=== PATIENT | male | born 1965 | race Caucasian/White ===

== ENCOUNTER 2018-03-16 11:36 | Outpatient (CLI) | payer OTHER | END 2018-03-16 11:37 | disposition home or self-care (01) | LOC: BICRAD 11:36 | PROVIDERS: ATTEND Internal Medicine | DX: Z02.71 Encounter for disability determination (principal); I51.7 Cardiomegaly; I27.21 Secondary pulmonary arterial hypertension | CPT/HCPCS: 71046 ==

== ENCOUNTER 2018-07-18 19:38 | Emergency (ER) | payer OTHER ==
[2018-07-18] MEDS ORDERED: Albuterol Sulfate 2.5 mg/3 ml Neb ONE (20:09)
[2018-07-18 20:34] LABS: #Eosinphils 0.2 thou/uL (0.0-0.7); #Lymphocytes 0.7 thou/uL (1.20-3.40); #Monocytes 0.5 thou/uL (0.11-0.59); #Neutrophils 3.5 thou/uL (1.40-6.50); %Basophils 0.1 % (0.0-1.0); %Eosinophils 3.9 % (0.0-10.0); %Lymphocytes 14.2 % (21.0-51.0); %Monocytes 10.9 % (0.0-10.0); %Neutrophils 70.9 % (42.0-75.0); Hemoglobin 8.8 g/dL (14.0-18.0); Mean Corpuscular HGB CONC 31.3 g/dL (32.0-36.0); Mean Corpuscular Hemoglobin 28.4 pg (27.0-31.0); Mean Corpuscular Volume 90.6 fL (78.0-98.0); Mean Platelet Volume 7.1 fL (7.4-10.4); Platelet Count 192 thou/uL (130-400); RBC Distribution Width 16.1 % (11.5-14.5); Red Blood Cell (RBC) Count 3.11 mill/uL (4.70-6.10); White Blood Cell (WBC) Count 4.9 thou/uL (4.8-10.8)
--- NOTE | 2018-07-18 20:36 | RAD ---
PORTABLE CHEST 07/18/18 PROVIDED CLINICAL HISTORY: Chest pain. FINDINGS: The cardiac silhouette is prominent which may be at least partially on the basis of portable techniqu e. There are diffuse bilateral reticulonodular densities. There is no pleural fluid or pneumothorax a pparent. IMPRESSION: Diffuse bilateral reticulonodular opacity. Infectious, inflammatory, and neoplastic etiology should b e considered. Followup is recommended. POS: [facility]
[2018-07-18 20:40] LABS: ALT (SGPT) 11 U/L (8-55); AST (SGOT) 15 U/L (5-34); Albumin 3.1 g/dL (3.5-5.0); Alkaline Phosphatase 138 U/L (40-150); Anion Gap 9 mmol/L (10-20); BUN (Urea Nitrogen) 27 mg/dL (8.4-25.7); Bilirubin, Total 0.7 mg/dL (0.2-1.2); Calc. Creatinine Clearance 0 mL/min (70-130); Calcium 8.1 mg/dL (7.8-10.44); Carbon Dioxide 22 mmol/L (22-29); Chloride 104 mmol/L (98-107); Estimated GFR-MDRD 65; Globulin 4.1 g/dL (2.4-3.5); Glucose 347 mg/dL (70-105); Potassium 3.6 mmol/L (3.5-5.1); Protein, Total 7.2 g/dL (6.0-8.3); Sodium 131 mmol/L (136-145)
[2018-07-18] MEDS ORDERED: Ketorolac Tromethamine 30 MG/ML VIAL ONE (21:51)
[2018-07-18] MEDS ORDERED: Ketorolac Tromethamine 60 MG/2 ML VIAL ONE (22:01)
--- NOTE | 2018-07-22 21:26 | EKG ---
Test Reason : Blood Pressure : / mmHG Vent. Rate : 071 BPM Atrial Rate : 071 BPM P-R Int : 154 ms QRS Dur : 098 ms QT Int : 450 ms P-R-T Axes : 066 -26 173 degrees QTc Int : 489 ms Sinus rhythm with Fusion complexes Possible Anterior infarct , age undetermined Abnormal ECG Confirmed by ASHLEY ESQUIVEL ([id number]), manuscript editor JOSÉ ANTONIO HORAN ([id number]) on 07/22/2018 9:25:56 PM Referred By: Confirmed By:ASHLEY ESQUIVEL
--- NOTE | 2018-07-24 05:42 | PQF ---
[facility] POST DISCHARGE CLINICAL DOCUMENTATION IMPROVEMENT CLARIFICATION FORM l Todays Date: 07/21/18 l Patients Name DONNA BOOKER l l Admit Date 07/18/18 l Disch Date 07/18/18 Messaging Architect Name [email or web address] [email or web address] To be completed by Messaging Architect: Present Clinical Indicators - Signs / Symptoms Results and Location in Medical Record [ ] Documentation of: [ ] [ ] Documentation of: [ ] [ ] Documentation of: [ ] [ ] Documentation of: [ ] [ ] Risks [ ] [ ] [ ] Treatment [ ] BRONCHITIS MISSING SPECIFICITY FOR BRONCHITIS WHETHER ACUTE OR CHRONIC PLEASE CLARIFY. [ ] [ ] To be completed by Physician MD Torres Tiffany The documentation in this patients record requires clarification to ensure coding compliance and accuracy. Check the appropriate box and include in your discharge summary. [ ] [ ] [ ] [ ] Please check this box if this does not apply to this patient [ ] Unable to determine [ ] Other diagnosis: Review the following information and exercise your independent professional judgment in responding to the clarification. Based upon the clinical findings, risk factors, and treatment, please clarify if you are treating one of the above probable or suspected diagnoses. Physician Signature: Date Time TIFFD
== END 2018-07-18 22:09 | disposition home or self-care (01) ==
LOC: ERS 19:38
DX: J20.9 Acute bronchitis, unspecified (principal); E11.22 Type 2 diabetes mellitus with diabetic chronic kidney disease; I12.9 Hypertensive chronic kidney disease with stage 1 through stage 4 chronic kidney disease, or unspecified chronic kidney disease; I50.9 Heart failure, unspecified; N18.9 Chronic kidney disease, unspecified; E78.5 Hyperlipidemia, unspecified; Z79.4 Long term (current) use of insulin; Z79.899 Other long term (current) drug therapy; Z79.891 Long term (current) use of opiate analgesic
CPT/HCPCS: 36415; 71045; 80053; 83880; 84484; 85025; 93005; 96372; J1885; J7611

== ENCOUNTER 2018-07-20 02:21 | Inpatient (IN) | payer OTHER ==
[2018-07-20 03:02] LABS: Hemoglobin 8.9 g/dL (14.0-18.0); Mean Corpuscular HGB CONC 32.3 g/dL (32.0-36.0); Mean Corpuscular Hemoglobin 28.9 pg (27.0-31.0); Mean Corpuscular Volume 89.5 fL (78.0-98.0); Mean Platelet Volume 7.8 fL (7.4-10.4); Platelet Count 229 thou/uL (130-400); RBC Distribution Width 16.3 % (11.5-14.5); White Blood Cell (WBC) Count 5.5 thou/uL (4.8-10.8)
[2018-07-20 03:24] LABS: Acanthocytes SLIGHT = 1-5 cells (100X) (None Seen); Band 7 % (5-11); Eosinophils 3 % (0-10); Lymphocytes 13 % (21-51); MDiff Complete? YES; Monocytes 8 % (0-10); Neutrophil 69 % (42-75); Schistocytes SLIGHT = 2-5 cells (100X) (0-1/hpf); Tear Drops SLIGHT = 2-5 cells (100X) (0-1/hpf)
[2018-07-20 03:28] LABS: ALT (SGPT) 11 U/L (8-55); AST (SGOT) 19 U/L (5-34); Albumin 3.1 g/dL (3.5-5.0); Alkaline Phosphatase 137 U/L (40-150); Anion Gap 12 mmol/L (10-20); BUN (Urea Nitrogen) 22 mg/dL (8.4-25.7); Bilirubin, Total 1.2 mg/dL (0.2-1.2); CK (CPK) 237 U/L (30-200); Calc. Creatinine Clearance 0 mL/min (70-130); Calcium 8.2 mg/dL (7.8-10.44); Carbon Dioxide 21 mmol/L (22-29); Chloride 103 mmol/L (98-107); Estimated GFR-MDRD 78; Globulin 4.4 g/dL (2.4-3.5); Glucose 156 mg/dL (70-105); Protein, Total 7.5 g/dL (6.0-8.3); Sodium 132 mmol/L (136-145)
[2018-07-20] MEDS ORDERED: Furosemide 40 MG/4 ML VIAL ONE (03:30)
[2018-07-20] MEDS ORDERED: Morphine 2 MG/ML SYRINGE ONE (03:37)
[2018-07-20] MEDS ORDERED: Acetaminophen 500 MG TAB ONE (06:00)
[2018-07-20 06:47] LABS: Troponin I 0.027 ng/mL (< 0.028)
--- NOTE | 2018-07-20 08:26 | RAD ---
SINGLE VIEW OF THE CHEST: COMPARISON: 07/18/2018. HISTORY: Shortness of breath and chest pain. FINDINGS: A single view of the chest shows an enlarged but stable cardiomediastinal silhouette. Increased inte rstitial lung markings are present. There is no evidence of consolidation, mass, or pleural effusion . IMPRESSION: No evidence of acute cardiopulmonary disease. POS: [facility]
[2018-07-20 09:29] LABS: Troponin I 0.022 ng/mL (< 0.028)
[2018-07-20] MEDS ORDERED: Furosemide 40 MG/4 ML VIAL SLOW IVP SCH (17:30)
[2018-07-20] MEDS ORDERED: Ondansetron PF 4 MG/2 ML Vial IVP PRN (17:40)
[2018-07-20] MEDS ORDERED: Ondansetron ODT 4 MG TAB PO PRN (17:40)
[2018-07-20] MEDS ORDERED: Senokot S 8.6-50 MG TAB PO PRN (17:40)
[2018-07-20] MEDS ORDERED: Dextrose 50% Abboject 50 ML SYRINGE SLOW IVP PRN (17:53)
[2018-07-20] MEDS ORDERED: Dextrose 5% in Water 1,000 ML IV PRN (17:53)
[2018-07-20] MEDS ORDERED: Lisinopril 10 MG TAB PO SCH (18:15)
[2018-07-20] MEDS: HumaLOG 300 UNITS/3 ML VIAL SC PRN (18:26)
[2018-07-20 20:47] LABS: INR-International Normal Ratio 1.3; Prothrombin Time 16.1 SEC (12.0-14.7)
[2018-07-20] MEDS ORDERED: Benzonatate 100 MG CAP PO PRN (21:06)
[2018-07-20] MEDS: cloNIDine 0.2 MG TAB PO SCH (21:08)
[2018-07-20] MEDS: Carvedilol 6.25 MG TAB PO SCH (21:08)
[2018-07-20] MEDS: Famotidine 20 MG TAB PO SCH (21:09)
[2018-07-20] MEDS: Doxazosin 2 MG TAB PO SCH (21:09)
--- NOTE | 2018-07-21 01:26 | HP ---
PRIMARY CARE PHYSICIAN: Pedro Thurston. CHIEF COMPLAINT: Cough and shortness of breath. HISTORY OF PRESENT ILLNESS: This is a 53-year-old white male who reports a 2 to 3-day history of increasing shortness of breath, orthopnea along with minimally productive cough. He also has had runny nose, congestion, and sore throat and has felt cold some, but no fevers. He was seen in the emergency room 2 days ago, at that time, he was noted to have some wheezing, which resolved with DuoNeb. He was discharged with a prescription for azithromycin and inhaler; however, the patient did not fill these [facility] He came back early this morning with persistent shortness of breath. In the emergency room, he was noted to be saturating well on room air, but to be a little bit hypertensive and have edema in his left lower extremity. His right is status post below-knee amputation, and he also had a chest x-ray that showed some diffuse reticulonodular increased interstitial markings. BNP was very elevated, so he was initially put in observation upon the medical floor for CHF. I was called to see him later in the afternoon for admission. PAST MEDICAL HISTORY: 1. Congestive heart failure, unknown type for classification. 2. Chronic kidney disease. 3. Cirrhosis of the liver, likely secondary to congestive heart failure. No history of alcoholism or viral hepatitis. 4. Diabetes mellitus type 2, on insulin. 5. Hyperlipidemia. 6. Hypertension. 7. Anemia. 8. Legally blind, secondary to diabetic retinopathy. 9. Diabetic peripheral neuropathy. 10. Chronic left lower extremity ulceration from chronic edema. PAST SURGICAL HISTORY: Right [id number]-vyv-zjua amputation for osteomyelitis. SOCIAL HISTORY: The patient previously was living in [place] and receiving care in [facility]. He moved to [place] and lived with his brother and however, within the last couple of weeks, he had a falling out with his brother and is now living at the [place]. He does still have his previous medications, which he brought with him today. The patient quit smoking cigarettes 20 years ago. He does chew tobacco about one can a week and no history of heavy alcohol use. Occasionally, he used to drink a beer, but stopped that ever since he got the cirrhosis. FAMILY HISTORY: Father is living, he has diabetes mellitus type 2, and he had stomach cancer, for which he had a resection. Mother is , she was an alcoholic and abused prescription drugs. ALLERGIES: NO KNOWN DRUG ALLERGIES. CURRENT MEDICATIONS: 1. Torsemide 20 mg daily. 2. Atorvastatin 40 mg daily. 3. Carvedilol 12.5 mg twice a day. 4. Clonidine 0.2 mg twice a day. 5. Doxazosin 2 mg twice a day. 6. Paroxetine 10 mg daily. 7. Spironolactone 100 mg daily. 8. Novolin 70/30, 23 units in the morning and 18 units at night. REVIEW OF SYSTEMS: CONSTITUTIONAL: He has felt cold some, but no fevers. EYES: Chronic poor vision from his diabetic retinopathy. ENT: See HPI. CARDIOVASCULAR: He has had some chest pain across the front of his chest ever since developing a worsening cough, the chest pain is difficult to describe, but it is worse with cough and with deep breaths. No palpitations or racing heart. PULMONARY: See HPI. He has significant trouble breathing if he lays down flat. He has to prop himself at least to a 45 degrees angle. GASTROINTESTINAL: No abdominal pain. No nausea or vomiting. He had an episode of diarrhea yesterday and today. GENITOURINARY: No dysuria or hematuria. MUSCULOSKELETAL: He has chronic muscle aches throughout his whole body, but nothing new. SKIN: He has ulcers as above to his left leg and hodgson along with some mild redness on the hodgson, this is chronic and it is about the same for over the last year. NEUROLOGIC: He has numbness in his left lower extremity. No other numbness, tingling, or weakness. PHYSICAL EXAMINATION: VITAL SIGNS: Blood pressure 179/97, pulse 82, respirations 18, O2 saturation 94% on room air, and temperature 97.3. GENERAL: This is a well-developed, well-nourished white male, in no acute distress as long as he sits up straight. HEENT: Pupils are equal, round, and reactive to light. Oropharynx clear without lesions, erythema, or exudate. He has poor dentition and missing most of his teeth. NECK: Supple. No lymphadenopathy. No thyroid nodules or enlargement. He does have some mild JVD. HEART: Regular rate and rhythm. No murmurs, rubs, or gallops. LUNGS: He has some mild dry crackling in the bases, worse on the left side, but otherwise good air movement throughout. No significant increased work of breathing. No wheezing currently. ABDOMEN: Moderately distended, but soft. Mildly tender to palpation around the periumbilical region, but no guarding. No masses or rebound tenderness. He does appear to have a little bit of a fluid wave. EXTREMITIES: The patient has a well-healed right BKA and on his left, he has looks like a little bit of dry ulceration on the tip of his left great toe and then very edematous ankle and leg with some mild erythema along the front of it and then multiple areas of skin breakdown, some of them bleeding a little bit. No evidence of acute infection, however. NEUROLOGIC: The patient has intact strength in all extremities and no facial droop. PSYCHIATRIC: Alert and oriented x3. He has a little bit of depressed affect. LABORATORY DATA: CBC; normal white blood cell count, hemoglobin 8.9, hematocrit 27, platelet count is normal. Complete metabolic panel is notable for sodium of 132, carbon dioxide of 21, glucose of 156, creatine kinase of 237, and albumin of 3.1. His troponin was negative x3. His brain natriuretic peptide is of 1434. IMAGING DATA: I did review the x-ray done in the emergency room along with the radiologist's report, it does show some increased interstitial lung markings, increased reticular nodular markings in bilateral lungs, and some possible enlargement of the heart. No effusions visualized. EKG shows normal sinus rhythm at 88 beats per minute and a prolonged QT. No acute ST-segment elevations. ASSESSMENT: 1. Acute on chronic congestive heart failure, undetermined type. We will give the patient Lasix 40 mg IV now and daily. We will also get an echocardiogram. We will continue the patient's carvedilol and his home spironolactone as well. Dr. Cornell was consulted by the emergency room. I am also going to transfer the patient to telemetry. We will fluid restrict the patient and give him a diabetic, low-sodium, fluid-restricted diet. 2. Chronic kidney disease. The patient currently has normal creatinine. We will watch this closely as we diurese him. 3. Diabetes mellitus type 2. We will resume the patient's home Novolin 70/30, put him on diabetic diet and give him moderate insulin sliding scale with before meals and at bedtime fingerstick blood sugars. 4. Cirrhosis. No evidence of spontaneous bacterial peritonitis at this point, and his albumin is actually not that low. I will check coagulation profile to make certain that he is not coagulopathic from the cirrhosis. 5. Chronic anemia. We will monitor in the hospital and make sure it does not drop any. 6. Gastrointestinal prophylaxis. I will put the patient on Pepcid twice a day. 7. Hypertension, uncontrolled. We will resume the patient's home blood pressure medications and we will actually add lisinopril. Given his congestive heart failure and uncontrolled hypertension, we will need to keep a close eye on his creatinine with introduction of his medicines which is started by 10 mg daily for now. We will give him a dose now and then start tomorrow morning. 8. Deep venous thrombosis prophylaxis. I will put the patient on Lovenox prophylactic dose daily. If his INR does come back elevated, we will need to stop this, however. CODE STATUS: I discussed this with the patient. He states he is a full code. Should he be incapacitated, he states his medical decision maker would be his father, Charbel Kumar. Job ID: [id number]
[2018-07-21 05:55] LABS: Band 10 % (5-11); Eosinophils 3 % (0-10); Hemoglobin 8.4 g/dL (14.0-18.0); Lymphocytes 17 % (21-51); MDiff Complete? YES; Mean Corpuscular HGB CONC 31.3 g/dL (32.0-36.0); Mean Corpuscular Hemoglobin 28.8 pg (27.0-31.0); Mean Corpuscular Volume 91.9 fL (78.0-98.0); Mean Platelet Volume 8.2 fL (7.4-10.4); Monocytes 2 % (0-10); Neutrophil 68 % (42-75); Platelet Count 208 thou/uL (130-400); Platelet Morphology Comment Appears Adequate; Red Blood Cell (RBC) Count 2.93 mill/uL (4.70-6.10); White Blood Cell (WBC) Count 3.6 thou/uL (4.8-10.8)
[2018-07-21 06:12] LABS: Anion Gap 19 mmol/L (10-20); BUN (Urea Nitrogen) 27 mg/dL (8.4-25.7); Calc. Creatinine Clearance 110 mL/min (70-130); Calcium 8.2 mg/dL (7.8-10.44); Carbon Dioxide 13 mmol/L (22-29); Chloride 104 mmol/L (98-107); Estimated GFR-MDRD 69; Glucose 184 mg/dL (70-105); Potassium 5.3 mmol/L (3.5-5.1); Sodium 131 mmol/L (136-145)
[2018-07-21] MEDS ORDERED: Lisinopril 10 MG TAB PO SCH (09:00)
[2018-07-21] MEDS ORDERED: Furosemide 40 MG/4 ML VIAL SLOW IVP SCH (09:00)
[2018-07-21] MEDS: Famotidine 20 MG TAB PO SCH ×2 (09:02→21:35)
[2018-07-21] MEDS: Enoxaparin Sodium 40 MG/0.4 ML SYRINGE SC SCH (09:02)
[2018-07-21] MEDS: PARoxetine 20 MG TAB PO SCH (09:03)
[2018-07-21] MEDS: Spironolactone 100 MG TAB PO SCH (09:03)
[2018-07-21] MEDS: Doxazosin 2 MG TAB PO SCH ×2 (09:03→21:35)
[2018-07-21] MEDS: Atorvastatin Calcium 40 MG TAB PO SCH (09:04)
[2018-07-21] MEDS: cloNIDine 0.2 MG TAB PO SCH ×2 (09:04→21:35)
[2018-07-21] MEDS: Carvedilol 6.25 MG TAB PO SCH (09:09)
[2018-07-21] MEDS: HumuLIN 70/30 (300 UNITS/3 ML VIAL) SC SCH (09:24)
[2018-07-21] MEDS ORDERED: Carvedilol 25 MG TAB PO SCH (11:00)
[2018-07-21] MEDS ORDERED: HumuLIN 70/30 (300 UNITS/3 ML VIAL) SC SCH (17:00)
[2018-07-21] MEDS: guaiFENesin ER 600 MG TAB PO SCH (21:35)
[2018-07-21] MEDS: Carvedilol 25 MG TAB PO SCH (21:36)
[2018-07-21] MEDS: Lisinopril 10 MG TAB PO SCH (21:36)
[2018-07-22 04:20] LABS: Bilirubin Negative (Negative); Blood, Urine Moderate (Negative); Clarity CLEAR (Clear); Glucose, Urine (Dipstick) Negative (Negative); Leukocyte Negative (Negative); Nitrite Negative (Negative); Protein, Urine (Dipstick) 300 mg/dL (Neg-Trace)
[2018-07-22 04:23] LABS: Bacteria/HPF None Seen HPF (None Seen); Hyaline Casts/LPF 7-10 HYALINE CAST LPF (0-3 Hyaline); Pathc Cast-AUWi Flag 1.16 (0-2.49); RBC/HPF 0-3 HPF (0-3); Squamous Epithelial 0-3 HPF (0-3); WBC/HPF 0-3 HPF (0-3)
[2018-07-22 04:24] LABS: Yeast-AUWi Flag 51.6 (0-25.0)
[2018-07-22 04:43] LABS: Renal Epithelial None Seen HPF (0-3); Transitional Epithelial NONE SEEN HPF (0-3)
[2018-07-22 04:44] LABS: Yeast-All Forms None Seen HPF (None Seen)
[2018-07-22 04:45] LABS: Urine Culture Reflex No No
[2018-07-22 05:33] LABS: #Eosinphils 0.1 thou/uL (0.0-0.7); #Lymphocytes 0.7 thou/uL (1.20-3.40); #Monocytes 0.5 thou/uL (0.11-0.59); #Neutrophils 2.3 thou/uL (1.40-6.50); %Basophils 0.2 % (0.0-1.0); %Eosinophils 3.4 % (0.0-10.0); %Lymphocytes 18.6 % (21.0-51.0); %Monocytes 13.4 % (0.0-10.0); %Neutrophils 64.4 % (42.0-75.0); Hemoglobin 8.2 g/dL (14.0-18.0); Mean Corpuscular HGB CONC 31.9 g/dL (32.0-36.0); Mean Corpuscular Hemoglobin 28.3 pg (27.0-31.0); Mean Corpuscular Volume 88.9 fL (78.0-98.0); Mean Platelet Volume 7.3 fL (7.4-10.4); Platelet Count 198 thou/uL (130-400); RBC Distribution Width 15.8 % (11.5-14.5); Red Blood Cell (RBC) Count 2.89 mill/uL (4.70-6.10); White Blood Cell (WBC) Count 3.5 thou/uL (4.8-10.8)
[2018-07-22 05:51] LABS: Lactic Acid 0.6 mmol/L (0.5-2.2)
[2018-07-22 06:01] LABS: Anion Gap 11 mmol/L (10-20); BUN (Urea Nitrogen) 36 mg/dL (8.4-25.7); Calc. Creatinine Clearance 109 mL/min (70-130); Carbon Dioxide 23 mmol/L (22-29); Chloride 102 mmol/L (98-107); Estimated GFR-MDRD 68; Glucose 63 mg/dL (70-105); Potassium 4.1 mmol/L (3.5-5.1); Sodium 132 mmol/L (136-145)
[2018-07-22] MEDS: HumuLIN 70/30 (300 UNITS/3 ML VIAL) SC SCH (08:34)
[2018-07-22] MEDS: Enoxaparin Sodium 40 MG/0.4 ML SYRINGE SC SCH (08:34)
[2018-07-22] MEDS: guaiFENesin ER 600 MG TAB PO SCH ×2 (08:35→21:08)
[2018-07-22] MEDS: Lisinopril 10 MG TAB PO SCH ×2 (08:35→21:08)
[2018-07-22] MEDS: cloNIDine 0.2 MG TAB PO SCH ×2 (08:35→18:01)
[2018-07-22] MEDS: Atorvastatin Calcium 40 MG TAB PO SCH (08:35)
[2018-07-22] MEDS: Spironolactone 100 MG TAB PO SCH (08:35)
[2018-07-22] MEDS: PARoxetine 20 MG TAB PO SCH (08:36)
[2018-07-22] MEDS: Doxazosin 2 MG TAB PO SCH ×2 (08:36→21:08)
[2018-07-22] MEDS: Famotidine 20 MG TAB PO SCH (08:36)
[2018-07-22] MEDS: Carvedilol 25 MG TAB PO SCH ×2 (08:36→21:09)
--- NOTE | 2018-07-22 12:05 | PDOC.PN ---
- Subjective Encounter Start Date: 07/22/18 (f/u heart failure) Encounter Start Time: 12:03 Subjective: Pt c/o chest tightness and difficulty breathing. cough productive -: a little. Denies sore throat/runny or stuffy nose. - Objective Resuscitation Status - Order Detail: 07/20/18 17:40 Resuscitation Status Routine Resuscitation Status: FULL: Full Resuscitation Discussed with: patient Vital Signs & Weight: Vital Signs (12 hours) Temp Pulse Resp BP BP BP Pulse Ox 07/22/18 11:16 57 L 18 175/84 H 98 07/22/18 11:12 58 L 16 94 L 07/22/18 07:41 63 20 93 L 07/22/18 07:27 98.1 F 62 20 127/75 92 L 07/22/18 04:06 59 L 20 92 L 07/22/18 02:58 97.8 F 57 L 20 113/64 94 L Weight Admit Weight 228 lb 9.6 oz Weight 225 lb 4.8 oz I&O: 07/21/18 07/22/18 07/23/18 06:59 06:59 06:59 Intake Total 584 400 Output Total 800 410 Balance -216 -10 Result Diagrams: 07/22/18 04:55 07/22/18 04:55 Additional Labs: Accuchecks 07/22/18 07/21/18 07/21/18 05:24 20:19 16:53 POC Glucose 164 H 129 H 123 H EKG Reviewed by me: Yes (tele - sinus 53-70's) Phys Exam - Physical Examination Constitutional: NAD Respiratory: clear to auscultation bilateral wheezing, ? basilar rales, some rhonchi Cardiovascular: RRR, no significant murmur Gastrointestinal: soft, non-tender, positive bowel sounds bilateral pitting edema, right BKA Neurological: non-focal Psychiatric: normal affect Skin: no rash Dx/Plan (1) Heart failure Code(s): I50.9 - HEART FAILURE, UNSPECIFIED Status: Chronic Qualifiers: Heart failure type: unspecified Heart failure chronicity: acute on chronic Qualified Code(s): I50.9 - Heart failure, unspecified (2) Bronchitis Code(s): J40 - BRONCHITIS, NOT SPECIFIED ACUTE OR CHRONIC Status: Acute (3) Diabetes mellitus Code(s): E11.9 - TYPE 2 DIABETES MELLITUS WITHOUT COMPLICATIONS Status: Acute Qualifiers: Diabetes mellitus type: type 2 Diabetes mellitus assistant terminal manager insulin use: with assistant terminal manager use (4) Hyponatremia Code(s): E87.1 - HYPO-OSMOLALITY AND HYPONATREMIA Status: Acute (5) Chronic kidney disease Code(s): N18.9 - CHRONIC KIDNEY DISEASE, UNSPECIFIED Status: Acute Qualifiers: Chronic kidney disease stage: unspecified stage Qualified Code(s): N18.9 - Chronic kidney disease, unspecified (6) Dyslipidemia Code(s): E78.5 - HYPERLIPIDEMIA, UNSPECIFIED Status: Chronic (7) Anemia Code(s): D64.9 - ANEMIA, UNSPECIFIED Status: Acute Qualifiers: Anemia type: unspecified type Qualified Code(s): D64.9 - Anemia, unspecified (8) Neutropenia Code(s): D70.9 - NEUTROPENIA, UNSPECIFIED Status: Acute Qualifiers: Neutropenia type: unspecified Qualified Code(s): D70.9 - Neutropenia, unspecified - Plan * Chest tightness/wheezing - continue steroids, schedule nebs and add inhaled steroid * heart failure - unknown type. IV lasix d/c yesterday - will resume oral diuretic today with lasix * dm - lowblood sugar today - decrease home insulin dosing by 50% and monitor * continue other home meds as ordered * hyponatremia - stable since admission * anemia - stable since admission, uncertainchronicity, pt receives care in [place]. * renal function normal - monitor * d/c pepcid - may be contributing toneutropenia * * dvt prophy - lovenox * gi prophy - not indicated * code status full * * pt remains at high risk in current condition * will need case management assistance for transition out of hospital - * reviewed plan of care with patient, no questions or further needs at end of eval * * 14:39 - RN noting that pt is anxious. Will order prn low dose ativan
[2018-07-22] MEDS ORDERED: Furosemide 40 MG TAB PO SCH (12:15)
[2018-07-22] MEDS: Lorazepam 0.5 MG TAB PO PRN ×2 (15:21→23:31)
[2018-07-22] MEDS ORDERED: HumuLIN 70/30 (300 UNITS/3 ML VIAL) SC SCH (17:00)
[2018-07-22] MEDS: HumaLOG 300 UNITS/3 ML VIAL SC PRN ×2 (17:30→22:17)
--- NOTE | 2018-07-22 17:43 | PDOC.EVN ---
Event Note - Event Note Event Note: Called by RN for elevated bp's in balbir 180's systolic and pt appears more calm and watching TV. Reviewed meds and requested that pt receive the clonidine scheduled for 21:00 now. The other 2 anti-htn meds - carvedilol and lisinopril will be dosed at 21:00.
[2018-07-22] MEDS: Budesonide 0.5 MG/2 ML NEB INH SCH (19:30)
[2018-07-22] MEDS: hydrALAZINE 20 MG/ML VIAL SLOW IVP PRN (22:33)
--- NOTE | 2018-07-22 23:37 | EKG ---
Test Reason : Blood Pressure : / mmHG Vent. Rate : 088 BPM Atrial Rate : 088 BPM P-R Int : 156 ms QRS Dur : 100 ms QT Int : 414 ms P-R-T Axes : 082 -18 094 degrees QTc Int : 500 ms Normal sinus rhythm Cannot rule out Anterior infarct , age undetermined Prolonged QT Abnormal ECG Artifact Confirmed by TAO DUNCAN DO ([id number]), editor newspaper JOSÉ ANTONIO HORAN ([id number]) on 07/22/2018 11:37:11 PM Referred By: Confirmed By:TAO DUNCAN DO
[2018-07-23] MEDS ORDERED: Temazepam 15 MG CAP PO SCH (01:45)
[2018-07-23] MEDS ORDERED: Budesonide 0.25 MG/2 ML NEB NEB SCH (01:45)
[2018-07-23 05:40] LABS: #Lymphocytes 0.6 thou/uL (1.20-3.40); #Monocytes 0.7 thou/uL (0.11-0.59); #Neutrophils 3.3 thou/uL (1.40-6.50); %Basophils 0.5 % (0.0-1.0); %Eosinophils 0.2 % (0.0-10.0); %Lymphocytes 13.5 % (21.0-51.0); %Monocytes 14.1 % (0.0-10.0); %Neutrophils 71.7 % (42.0-75.0); Hemoglobin 8.6 g/dL (14.0-18.0); Mean Corpuscular HGB CONC 32.9 g/dL (32.0-36.0); Mean Corpuscular Volume 88.2 fL (78.0-98.0); Mean Platelet Volume 7.7 fL (7.4-10.4); Platelet Count 205 thou/uL (130-400); RBC Distribution Width 15.6 % (11.5-14.5); Red Blood Cell (RBC) Count 2.96 mill/uL (4.70-6.10); White Blood Cell (WBC) Count 4.6 thou/uL (4.8-10.8)
[2018-07-23 06:03] LABS: Anion Gap 14 mmol/L (10-20); BUN (Urea Nitrogen) 36 mg/dL (8.4-25.7); Calc. Creatinine Clearance 102 mL/min (70-130); Calcium 8.4 mg/dL (7.8-10.44); Carbon Dioxide 18 mmol/L (22-29); Chloride 100 mmol/L (98-107); Estimated GFR-MDRD 64; Glucose 172 mg/dL (70-105); Potassium 4.4 mmol/L (3.5-5.1); Sodium 128 mmol/L (136-145)
[2018-07-23] MEDS ORDERED: Furosemide 40 MG TAB PO SCH (07:30)
[2018-07-23] MEDS: Budesonide 0.5 MG/2 ML NEB INH SCH ×2 (07:32→19:39)
[2018-07-23] MEDS ORDERED: HumuLIN 70/30 (300 UNITS/3 ML VIAL) SC SCH (08:00)
[2018-07-23] MEDS: Carvedilol 25 MG TAB PO SCH ×2 (08:02→21:52)
[2018-07-23] MEDS: cloNIDine 0.2 MG TAB PO SCH ×2 (08:02→21:51)
[2018-07-23] MEDS: Atorvastatin Calcium 40 MG TAB PO SCH (08:02)
[2018-07-23] MEDS: Lorazepam 0.5 MG TAB PO PRN ×2 (08:02→21:52)
[2018-07-23] MEDS: guaiFENesin ER 600 MG TAB PO SCH ×2 (08:02→21:50)
[2018-07-23] MEDS: Doxazosin 2 MG TAB PO SCH ×2 (08:02→21:50)
[2018-07-23] MEDS: PARoxetine 20 MG TAB PO SCH (08:02)
[2018-07-23] MEDS: Lisinopril 10 MG TAB PO SCH (08:02)
[2018-07-23] MEDS: Spironolactone 100 MG TAB PO SCH (08:02)
[2018-07-23] MEDS: Enoxaparin Sodium 40 MG/0.4 ML SYRINGE SC SCH (08:03)
[2018-07-23] MEDS: HumaLOG 300 UNITS/3 ML VIAL SC PRN (08:04)
[2018-07-23] MEDS ORDERED: Furosemide 40 MG/4 ML VIAL ONE (14:55)
[2018-07-23] MEDS ORDERED: Furosemide 40 MG/4 ML VIAL SLOW IVP SCH ×2 (15:00→22:15)
--- NOTE | 2018-07-23 15:10 | PDOC.PN ---
- Subjective Encounter Start Date: 07/23/18 (f/u shortness of breath) Encounter Start Time: 15:08 Subjective: Pt c/o worsening breathing and requesting to go to [facility] where -: his usual doctors are at. He denies any significant swelling in his legs, -: has not been wearing his stump plastic mixer. - Objective Resuscitation Status - Order Detail: 07/20/18 17:40 Resuscitation Status Routine Resuscitation Status: FULL: Full Resuscitation Discussed with: patient Vital Signs & Weight: Vital Signs (12 hours) Temp Pulse Resp BP BP Pulse Ox 07/23/18 13:50 58 L 26 H 93 L 07/23/18 12:37 97.9 F 58 L 20 166/82 H 100 07/23/18 10:22 61 22 H 94 L 07/23/18 08:02 168/84 H 07/23/18 08:00 95 07/23/18 07:58 98 F 16 168/84 H 95 07/23/18 07:32 67 18 95 07/23/18 07:31 67 18 95 Weight Admit Weight 228 lb 9.6 oz Weight 232 lb 8 oz I&O: 07/22/18 07/23/18 07/24/18 06:59 06:59 06:59 Intake Total 400 1640 Output Total 410 2075 Balance -10 -435 Result Diagrams: 07/23/18 04:28 07/23/18 04:28 Additional Labs: Accuchecks 07/23/18 07/23/18 07/22/18 11:16 05:15 20:44 POC Glucose 95 213 H 289 H 07/22/18 17:01 POC Glucose 292 H EKG Reviewed by me: Yes (tele - sinus 50-60's) Phys Exam - Physical Examination Constitutional: NAD bibasilar rales right> left, fair air movement with wheezing speaking in 4-5 word phrases Cardiovascular: RRR, no significant murmur Gastrointestinal: soft edema around right BKA Neurological: non-focal Psychiatric: normal affect Dx/Plan (1) Heart failure Code(s): I50.9 - HEART FAILURE, UNSPECIFIED Status: Chronic Qualifiers: Heart failure type: systolic Heart failure chronicity: acute on chronic Qualified Code(s): I50.23 - Acute on chronic systolic (congestive) heart failure (2) Bronchitis Code(s): J40 - BRONCHITIS, NOT SPECIFIED ACUTE OR CHRONIC Status: Acute (3) Diabetes mellitus Code(s): E11.9 - TYPE 2 DIABETES MELLITUS WITHOUT COMPLICATIONS Status: Acute Qualifiers: Diabetes mellitus type: type 2 Diabetes mellitus termite treater insulin use: with termite treater use (4) Hyponatremia Code(s): E87.1 - HYPO-OSMOLALITY AND HYPONATREMIA Status: Acute (5) Chronic kidney disease Code(s): N18.9 - CHRONIC KIDNEY DISEASE, UNSPECIFIED Status: Acute Qualifiers: Chronic kidney disease stage: unspecified stage Qualified Code(s): N18.9 - Chronic kidney disease, unspecified (6) Dyslipidemia Code(s): E78.5 - HYPERLIPIDEMIA, UNSPECIFIED Status: Chronic (7) Anemia Code(s): D64.9 - ANEMIA, UNSPECIFIED Status: Acute Qualifiers: Anemia type: unspecified type Qualified Code(s): D64.9 - Anemia, unspecified (8) Neutropenia Code(s): D70.9 - NEUTROPENIA, UNSPECIFIED Status: Acute Qualifiers: Neutropenia type: unspecified Qualified Code(s): D70.9 - Neutropenia, unspecified - Plan * Acute decompensated systolic HF - reviewed Echo and EFestimated at 35-40% * Lasix 40 mg IV now * recheck in 6 hours and consider repeat * Appreciate Cardiology following * Chest tightness/wheezing - continue steroids, schedule nebs and inhaled steroid. Chest tightness is not explained by decompensated heart failure. may be COPD exacerbatioon - although pt denies hx of this - vs bronchitis * dm - insullin lowered yesterday due to low blood sugars - will adjust as some blood sugars now in the 200's * continue other home meds as ordered * hyponatremia - slightly worse, asx, c/w hypervolemic. Will continue fluid restriction of 1.2 L per day and continue lasix/monitoring along with renal function * * anemia - stable since admission, uncertain chronicity, pt receives care in [place]. * renal function normal/stable - monitor * d/c pepcid yesterday - may be contributing to neutropenia which is improved today * * Transfer center contacted regarding patient request to transfer to [facility]. Pt advised that I do not think he is stable for discharge, and that we cannot send him to [place] without their acceptance. If he desires to leave prior to [facility] accepting him in transfer, itwill be against medical advice. * * 15:20 - RN reports pt went downstairs to see a friend, away from room. Is aware of request to not leave floor. * * continue mood medications and prn ativan * * dvt prophy - lovenox * gi prophy - not indicated * code status full * * pt remains at high risk in current condition * reviewed plan of care with patient,no questions or further needs at end of eval. * * discussed with Arleen/Charge Nurse - transfer center will be able to contact a transfer hospital on Tuesday for financial clearance. If cleared, a doc-to-doc discussion will take place. By report, [facility] full.
--- NOTE | 2018-07-23 15:41 | PRG ---
DATE OF SERVICE: 07/21/2018 SUBJECTIVE: Mr. Kumar reports feeling about the same as he felt on admission. He does report some interval improvement in lower extremity edema. Uncomfortable when attempting to lie flat, reports thick secretions that are typical to expectorate. Reports dyspnea on exertion, which is unchanged. One loose stool this morning, which was new. He has concerns about disposition after hospitalization, was told by [facility], he would not be able to return there at discharge. When asked, he reports learning about his congestive heart failure about 3 years ago. Most of his medical care has been in [place]. In fact, he has some appointments coming up in next few weeks to address acquisition of a prosthetic for his right below-the- knee amputation. He denies any nausea or vomiting today, no abdominal pain or pressure. He endorses some abdominal distention during times when he retains fluid, and he feels that this is a bit better than on admission. PHYSICAL EXAMINATION: VITAL SIGNS: Blood pressure 159/79, pulse 58, respiratory rate 18, and temperature 99.0. GENERAL: This is a pleasant gentleman, sitting straight up in bed, speaking in short sentences. HEENT: Eyes are without conjunctival injection or scleral icterus. Oropharynx is without erythema or thrush. NECK: Supple. Full range of motion. HEART: Regular rate and rhythm, without distinct murmur. LUNGS: Notable for diffuse rhonchi throughout all lung padilla auscultated, and decreased breath sounds at the bases. ABDOMEN: Mildly distended and nontender. EXTREMITIES: Notable for left lower leg edema, 1+, with overlying areas of skin wounds, presently dressed. GENITOURINARY: No Montalvo catheter. NEUROLOGY: No focal deficits. He does have chronic left lower extremity polyneuropathy. MUSCULOSKELETAL: Status post right [id number] amputation. LABORATORY/DATA REVIEW: White blood cell count today is 3.6, hemoglobin 8.4, hematocrit 26.9, and platelet count 208, 68% neutrophils, 10% bands. INR 1.3. Chemistry panel: Serum sodium 131, potassium 5.3, chloride 104, bicarbonate is 13, BUN 27, creatinine 1.1, glucose 184, accucheck glucose ranging from 161 to 236 on laboratory work. IMPRESSION: 1. Congestive heart failure, unknown type for classification, with decompensation. 2. Acute bronchitis. 3. Chronic kidney disease, stage 2. 4. History of cirrhosis of the liver. 5. History of type 2 diabetes, insulin dependent. 6. Metabolic acidosis, new. 7. Hyperkalemia, mild. 8. Dyslipidemia. 9. Hypertension. 10. Anemia, likely of chronic disease. 11. Legal blindness secondary to diabetic retinopathy. 12. Diabetic peripheral polyneuropathy. 13. History of previous right vqnnz-lvr-[id number] amputation. 14. Chronic left lower extremity ulceration in the context of chronic edema. PLAN/RECOMMENDATIONS: 1. Cardiology-check serum ketone and urine ketone, noted bicarbonate has decreased from 21 to 13. Diabetes labs are not severely out of control, we will also check lactic acid level as well as morning laboratory values. We will place IV diuretic on hold, pending recheck of labs. His primary issue may be more mediated by pulmonary infection rather than fluid overload alone. 2. Pulmonary-significant wheezing present on exam. We will add trial of steroids. He has a previous history of smoking, no official diagnosis of COPD. Add antibiotic coverage, continue nebulizers, and add guaifenesin for expectorant. 3. Endocrine-continue insulin per current sliding scale, may require dose titration after steroids initiated. 4. Social work consultation-I spoke with onsite case manager, we met with the patient in the room. He is open to options including returning to [place] as he is established with cardiac care and also with outpatient wound care. Regarding timing for discharge, it appears he needs a couple of additional days in the hospital, particularly given the noted metabolic acidosis today, pending echocardiogram, and need for medical stabilization. 5. DVT prophylaxis-Lovenox. 6. Given his age and comorbidities, he is at high risk. Job ID: [id number] [facility]
--- NOTE | 2018-07-23 16:20 | PDOC.EVN ---
Event Note - Event Note Event Note: Pt requesting sleep medication for tonight, has responded well to ambien in the psat. Ordered this for tonight.
[2018-07-23] MEDS: HumuLIN 70/30 (300 UNITS/3 ML VIAL) SC SCH (18:27)
[2018-07-23] MEDS: Lisinopril 20 MG TAB PO SCH (21:50)
--- NOTE | 2018-07-23 22:17 | PDOC.EVN ---
Event Note - Event Note Event Note: Pt received lasix earlier, feels that his breathing is a little better, but still has chest tightness and wheezing. Reviewed Cardiology note and IV lasix bid ordered. Will add an additoinal dose of lasix tonight - pt agreeable to this, order CXR for tomorrow, and retime daily lasix to 9:00 and 16:00. In addition, requested that RN in the morning check creatinine prior to giving AM dose of lasix - if elevated to contact hospitalist to determine benefit/risk of additonal diuresis. Reviewed plan of care with pt and RN, no questions or further needs at end of eval.
[2018-07-23] MEDS: hydrALAZINE 20 MG/ML VIAL SLOW IVP PRN (23:55)
[2018-07-23] MEDS: Zolpidem Tartrate 5 MG TAB PO PRN (23:56)
[2018-07-24 05:47] LABS: #Lymphocytes 0.7 thou/uL (1.20-3.40); #Monocytes 0.8 thou/uL (0.11-0.59); #Neutrophils 4.9 thou/uL (1.40-6.50); %Basophils 0.1 % (0.0-1.0); %Eosinophils 0.2 % (0.0-10.0); %Lymphocytes 10.8 % (21.0-51.0); %Monocytes 11.8 % (0.0-10.0); %Neutrophils 77.2 % (42.0-75.0); Hemoglobin 9.1 g/dL (14.0-18.0); Mean Corpuscular HGB CONC 31.3 g/dL (32.0-36.0); Mean Corpuscular Hemoglobin 28.2 pg (27.0-31.0); Platelet Count 228 thou/uL (130-400); RBC Distribution Width 15.7 % (11.5-14.5); Red Blood Cell (RBC) Count 3.24 mill/uL (4.70-6.10); White Blood Cell (WBC) Count 6.4 thou/uL (4.8-10.8)
[2018-07-24] MEDS ORDERED: Furosemide 40 MG/4 ML VIAL SLOW IVP SCH (06:00)
[2018-07-24 06:02] LABS: Anion Gap 13 mmol/L (10-20); BUN (Urea Nitrogen) 45 mg/dL (8.4-25.7); Calc. Creatinine Clearance 100 mL/min (70-130); Calcium 8.7 mg/dL (7.8-10.44); Carbon Dioxide 22 mmol/L (22-29); Chloride 99 mmol/L (98-107); Estimated GFR-MDRD 62; Glucose 160 mg/dL (70-105); Potassium 4.1 mmol/L (3.5-5.1); Sodium 130 mmol/L (136-145)
[2018-07-24] MEDS: Budesonide 0.5 MG/2 ML NEB INH SCH ×2 (07:30→21:10)
[2018-07-24] MEDS: HumuLIN 70/30 (300 UNITS/3 ML VIAL) SC SCH ×2 (08:45→16:39)
[2018-07-24] MEDS: Atorvastatin Calcium 40 MG TAB PO SCH (08:46)
[2018-07-24] MEDS: predniSONE 20 MG TAB PO SCH (08:46)
[2018-07-24] MEDS: guaiFENesin ER 600 MG TAB PO SCH ×2 (08:47→20:50)
[2018-07-24] MEDS: Doxazosin 2 MG TAB PO SCH ×2 (08:47→20:49)
[2018-07-24] MEDS: Enoxaparin Sodium 40 MG/0.4 ML SYRINGE SC SCH (08:47)
[2018-07-24] MEDS: cloNIDine 0.2 MG TAB PO SCH ×2 (08:47→20:50)
[2018-07-24] MEDS: PARoxetine 20 MG TAB PO SCH (08:49)
[2018-07-24] MEDS: Lisinopril 20 MG TAB PO SCH ×2 (08:50→20:50)
[2018-07-24] MEDS: Spironolactone 100 MG TAB PO SCH (08:50)
--- NOTE | 2018-07-24 09:12 | PDOC.PN ---
- Subjective Encounter Start Date: 07/24/18 Encounter Start Time: 12:00 Subjective: Patient reports some improvement in SOB, though still with significant -: orthopnea. No chest pain. - Objective Resuscitation Status - Order Detail: 07/20/18 17:40 Resuscitation Status Routine Resuscitation Status: FULL: Full Resuscitation Discussed with: holley SHI Reviewed: Yes Vital Signs & Weight: Vital Signs (12 hours) Temp Pulse Resp BP BP Pulse Ox 07/24/18 08:44 97.9 F 69 20 133/67 97 07/24/18 04:40 97.8 F 63 20 165/86 H 96 07/23/18 23:55 204/95 H 07/23/18 23:50 204/102 H 07/23/18 21:51 209/102 H 07/23/18 21:50 209/102 H 209/102 H Weight Admit Weight 228 lb 9.6 oz Weight 225 lb 3.2 oz I&O: 07/23/18 07/24/18 07/25/18 06:59 06:59 06:59 Intake Total 1640 1490 Output Total 2070 3075 Balance -435 -1585 Result Diagrams: 07/24/18 04:28 07/24/18 04:28 Additional Labs: Accuchecks 07/24/18 07/23/18 07/23/18 05:45 20:39 17:11 POC Glucose 229 H 198 H 283 H 07/23/18 11:16 POC Glucose 95 Phys Exam - Physical Examination Constitutional: NAD HEENT: moist MMs Respiratory: no wheezing, no rhonchi occ rales in bases Cardiovascular: RRR Gastrointestinal: soft, positive bowel sounds Musculoskeletal: edema present Neurological: non-focal, moves all 4 limbs Psychiatric: normal affect, A&O x 3 Dx/Plan (1) Heart failure Code(s): I50.9 - HEART FAILURE, UNSPECIFIED Status: Chronic Qualifiers: Heart failure type: systolic Heart failure chronicity: acute on chronic Qualified Code(s): I50.23 - Acute on chronic systolic (congestive) heart failure Comment: Diuresed well overnight. BP improved this morning. Continue IV diuresis. Per patient request attempting to transfer to [facility] but unable to due to finances. (2) Acute bronchitis Code(s): J20.9 - ACUTE BRONCHITIS, UNSPECIFIED Status: Acute Comment: Steroids, nebs. No hx of COPD per patient. (3) Anemia Code(s): D64.9 - ANEMIA, UNSPECIFIED Status: Acute Qualifiers: Anemia type: unspecified type Qualified Code(s): D64.9 - Anemia, unspecified Comment: Stable (4) Chronic kidney disease Code(s): N18.9 - CHRONIC KIDNEY DISEASE, UNSPECIFIED Status: Chronic Qualifiers: Chronic kidney disease stage: stage 2 (mild) Qualified Code(s): N18.2 - Chronic kidney disease, stage 2 (mild) (5) Diabetes mellitus Code(s): E11.9 - TYPE 2 DIABETES MELLITUS WITHOUT COMPLICATIONS Status: Chronic Qualifiers: Diabetes mellitus type: type 2 Diabetes mellitus detention insulin use: with detention use (6) Hyponatremia Code(s): E87.1 - HYPO-OSMOLALITY AND HYPONATREMIA Status: Acute Comment: Due to CHF, stable (7) Neutropenia Code(s): D70.9 - NEUTROPENIA, UNSPECIFIED Status: Resolved Qualifiers: Neutropenia type: unspecified Qualified Code(s): D70.9 - Neutropenia, unspecified (8) Dyslipidemia Code(s): E78.5 - HYPERLIPIDEMIA, UNSPECIFIED Status: Chronic - Plan cont current plan of care, PT/OT, social worker psychiatric, DVT proph w/lovenox Continue diuresis * . - Discharge Day Encounter end time: 12:15
[2018-07-24] MEDS: Furosemide 40 MG/4 ML VIAL SLOW IVP SCH ×2 (09:38→16:40)
[2018-07-24] MEDS: Carvedilol 25 MG TAB PO SCH ×2 (09:38→20:50)
[2018-07-24] MEDS: Lorazepam 0.5 MG TAB PO PRN ×2 (09:38→20:50)
--- NOTE | 2018-07-24 10:44 | RAD ---
FRONTAL AND LATERAL IMAGING OF THE CHEST: Date: 07-24-18 Comparison: 07-20-18, 03-16-18 History: Wheezing, decompensated heart failure. FINDINGS: There is pulmonary vascular congestion. There is mild perihilar and upper lobe interstitial opacity. Hazy nodularity is suspected in both upper lobes, left greater than right. Questionable nodular densi ty seen lateral to the left heart border. There is no pneumothorax. There is no pleural fluid. IMPRESSION: Pulmonary vascular congestion. No pleural fluid is seen. There is nodularity suspected in bilateral u pper lobes and possibly in the lateral aspect of the left hemithorax. Recommend further evaluation vi a CT examination of the chest to better evaluate the lung parenchyma. Code T POS: OFF
[2018-07-24 12:09] VITALS: BMI 28.9
[2018-07-24] MEDS: hydrALAZINE 20 MG/ML VIAL SLOW IVP PRN (12:49)
[2018-07-24] MEDS: HumaLOG 300 UNITS/3 ML VIAL SC PRN ×2 (18:24→20:51)
[2018-07-24] MEDS: Zolpidem Tartrate 5 MG TAB PO PRN (20:49)
[2018-07-25] MEDS: Budesonide 0.5 MG/2 ML NEB INH SCH ×2 (08:06→18:41)
[2018-07-25] MEDS ORDERED: Carvedilol 25 MG TAB PO SCH (08:43)
[2018-07-25] MEDS ORDERED: cloNIDine 0.2 MG TAB PO SCH (08:43)
[2018-07-25] MEDS ORDERED: Furosemide 40 MG/4 ML VIAL SLOW IVP SCH (08:43)
[2018-07-25] MEDS ORDERED: Carvedilol 6.25 MG TAB PO SCH (09:00)
[2018-07-25] MEDS ORDERED: Metolazone 5 MG TAB PO SCH ×2 (09:00→09:30)
--- NOTE | 2018-07-25 09:13 | PDOC.PN ---
- Subjective Encounter Start Date: 07/25/18 Encounter Start Time: 11:20 Subjective: Patient reports able to sleep better lying down than previously. -: Still with some wheezing, breathing treatments helping. - Objective Resuscitation Status - Order Detail: 07/20/18 17:40 Resuscitation Status Routine Resuscitation Status: FULL: Full Resuscitation Discussed with: patient YURIDIA Reviewed: Yes Vital Signs & Weight: Vital Signs (12 hours) Temp Pulse Resp BP BP BP Pulse Ox 07/25/18 08:06 70 14 07/25/18 07:56 97.9 F 64 20 173/77 H 95 07/25/18 04:20 98.4 F 58 L 20 179/86 H 93 L 07/25/18 00:00 98.1 F 64 19 184/84 H 95 Weight Admit Weight 228 lb 9.6 oz Weight 227 lb 12.8 oz I&O: 07/24/18 07/25/18 07/26/18 06:59 06:59 06:59 Intake Total 1490 1400 Output Total 3075 1325 Balance -1585 75 Result Diagrams: 07/24/18 04:28 07/24/18 04:28 Additional Labs: Accuchecks 07/25/18 07/24/18 07/24/18 05:44 20:28 16:36 POC Glucose 164 H 381 H 354 H 07/24/18 11:34 POC Glucose 251 H Phys Exam - Physical Examination Constitutional: NAD HEENT: moist MMs Respiratory: no wheezing, no rhonchi Patient laying on left side, has some rales in that side, breathing easily on oxygen Cardiovascular: RRR, no significant murmur Gastrointestinal: soft, positive bowel sounds Musculoskeletal: edema present s/p R BKA Neurological: non-focal, moves all 4 limbs Psychiatric: normal affect, A&O x 3 Dx/Plan (1) Heart failure Code(s): I50.9 - HEART FAILURE, UNSPECIFIED Status: Chronic Qualifiers: Heart failure type: systolic Heart failure chronicity: acute on chronic Qualified Code(s): I50.23 - Acute on chronic systolic (congestive) heart failure Comment: Didn't diurese well last night. Increasing dose of Lasix to 80mg BID. (2) Acute bronchitis Code(s): J20.9 - ACUTE BRONCHITIS, UNSPECIFIED Status: Acute Comment: Steroids, nebs. No hx of COPD per patient. (3) Anemia Code(s): D64.9 - ANEMIA, UNSPECIFIED Status: Acute Qualifiers: Anemia type: unspecified type Qualified Code(s): D64.9 - Anemia, unspecified Comment: Stable (4) Chronic kidney disease Code(s): N18.9 - CHRONIC KIDNEY DISEASE, UNSPECIFIED Status: Chronic Qualifiers: Chronic kidney disease stage: stage 2 (mild) Qualified Code(s): N18.2 - Chronic kidney disease, stage 2 (mild) (5) Diabetes mellitus Code(s): E11.9 - TYPE 2 DIABETES MELLITUS WITHOUT COMPLICATIONS Status: Chronic Qualifiers: Diabetes mellitus type: type 2 Diabetes mellitus prison insulin use: with prison use (6) Hyponatremia Code(s): E87.1 - HYPO-OSMOLALITY AND HYPONATREMIA Status: Acute Comment: Due to CHF, stable (7) Neutropenia Code(s): D70.9 - NEUTROPENIA, UNSPECIFIED Status: Resolved Qualifiers: Neutropenia type: unspecified Qualified Code(s): D70.9 - Neutropenia, unspecified (8) Dyslipidemia Code(s): E78.5 - HYPERLIPIDEMIA, UNSPECIFIED Status: Chronic - Plan cont current plan of care, PT/OT, DVT proph w/lovenox recheck labs in AM * . - Discharge Day Encounter end time: 11:30 Pulmonology Consult: Meds - Medications MAR Reviewed: Yes Medications: Current Medications Albuterol/Ipratropium (Duoneb) 3 ml NEB [id number] [facility] Last Admin: 07/25/18 10:54 Dose: 3 ml Atorvastatin Calcium (Lipitor) 40 mg PO DAILY [facility] Last Admin: 07/25/18 10:24 Dose: 40 mg Benzonatate (Tessalon) 100 mg PO Q6H PRN PRN Reason: Cough Last Admin: 07/20/18 21:19 Dose: 100 mg Budesonide (Pulmicort Neb Solution) 0.5 mg INH BID-RT [facility] Last Admin: 07/25/18 08:06 Dose: 0.5 mg Carvedilol (Coreg) 12.5 mg PO BID [facility] Last Admin: 07/25/18 10:23 Dose: 12.5 mg Clonidine (Catapres) 0.3 mg PO BID [facility] Last Admin: 07/25/18 10:25 Dose: 0.3 mg Dextrose/Water (Dextrose 50%) 25 gm SLOW IVP PRN PRN PRN Reason: Hypoglycemia Doxazosin Mesylate (Cardura) 2 mg PO BID [facility] Last Admin: 07/25/18 10:23 Dose: 2 mg Enoxaparin Sodium (Lovenox) 40 mg SC 0900 [facility] Last Admin: 07/25/18 10:33 Dose: Not Given Furosemide (Lasix) 80 mg SLOW IVP 0900,1600 [facility] Last Admin: 07/25/18 10:26 Dose: 80 mg Glucagon (Glucagon) 1 mg IM PRN PRN PRN Reason: Hypoglycemia Guaifenesin (Mucinex) 1,200 mg PO Q12HR [facility] Last Admin: 07/25/18 10:25 Dose: 1,200 mg Hydralazine HCl (Apresoline) 10 mg SLOW IVP Q4H PRN PRN Reason: SBP Greater Than 180 Last Admin: 07/25/18 11:57 Dose: 10 mg Dextrose/Water (D5w) 1,000 mls @ 0 mls/hr IV .Q0M PRN PRN Reason: Hypoglycemia Insulin Human Isoph/Insulin Regular (Humulin 70/30) 14 units SC QPM-WM [facility] Last Admin: 07/24/18 16:39 Dose: 14 unit Insulin Human Isoph/Insulin Regular (Humulin 70/30) 17 units SC QAM[facility] Last Admin: 07/25/18 10:27 Dose: 17 unit Insulin Human Lispro (Humalog) 0 units SC .BEDTIME SLIDING SC PRN; Protocol PRN Reason: BEDTIME SLIDING SCALE Last Admin: 07/24/18 20:51 Dose: 5 unit Insulin Human Lispro (Humalog) 0 units SC .MODERATE SLIDING SC PRN PRN Reason: Moderate Correctional Scale Last Admin: 07/25/18 11:41 Dose: 8 unit Levofloxacin (Levaquin) 500 mg PO 2000 [facility] Last Admin: 07/24/18 20:49 Dose: 500 mg Lisinopril (Zestril) 20 mg PO BID [facility] Last Admin: 07/25/18 10:25 Dose: 20 mg Lorazepam (Ativan) 0.5 mg PO Q8H PRN PRN Reason: Anxiety Last Admin: 07/25/18 10:26 Dose: 0.5 mg Metolazone (Zaroxolyn) 5 mg PO 0830 [facility] Ondansetron HCl (Zofran Odt) 4 mg PO Q6H PRN PRN Reason: Nausea/Vomiting Ondansetron HCl (Zofran) 4 mg IVP Q6H PRN PRN Reason: Nausea/Vomiting Paroxetine HCl (Paxil) 10 mg PO DAILY [facility] Last Admin: 07/25/18 10:24 Dose: 10 mg Prednisone (Prednisone) 40 mg PO QAM-WM [facility] Last Admin: 07/25/18 10:24 Dose: 40 mg Senna/Docusate Sodium (Senokot S) 2 tab PO BID PRN PRN Reason: Constipation Sodium Chloride (Flush - Normal Saline) 10 ml IVF Q12HR [facility] Last Admin: 07/25/18 10:27 Dose: 10 ml Sodium Chloride (Flush - Normal Saline) 10 ml IVF PRN PRN PRN Reason: Saline Flush Spironolactone (Aldactone) 100 mg PO DAILY [facility] Last Admin: 07/25/18 10:24 Dose: 100 mg Zolpidem Tartrate (Ambien) 5 mg PO HSPRN PRN PRN Reason: Insomnia Last Admin: 07/24/18 20:49 Dose: 5 mg - Allergies Allergies/Adverse Reactions: Allergies Allergy/AdvReac Type Severity Reaction Status Date / Time No Known Allergies Allergy Unverified 07/20/18 15:21
[2018-07-25] MEDS: Carvedilol 25 MG TAB PO SCH ×2 (10:23→20:47)
[2018-07-25] MEDS: Doxazosin 2 MG TAB PO SCH ×2 (10:23→20:47)
[2018-07-25] MEDS: Enoxaparin Sodium 40 MG/0.4 ML SYRINGE SC SCH ×2 (10:24→10:33)
[2018-07-25] MEDS: PARoxetine 20 MG TAB PO SCH (10:24)
[2018-07-25] MEDS: predniSONE 20 MG TAB PO SCH (10:24)
[2018-07-25] MEDS: Spironolactone 100 MG TAB PO SCH (10:24)
[2018-07-25] MEDS: Atorvastatin Calcium 40 MG TAB PO SCH (10:24)
[2018-07-25] MEDS: Lisinopril 20 MG TAB PO SCH ×2 (10:25→20:47)
[2018-07-25] MEDS: cloNIDine 0.3 MG TAB PO SCH ×2 (10:25→20:47)
[2018-07-25] MEDS: guaiFENesin ER 600 MG TAB PO SCH ×2 (10:25→20:46)
[2018-07-25] MEDS: Furosemide 100 MG/10 ML VIAL SLOW IVP SCH ×2 (10:26→16:32)
[2018-07-25] MEDS: Lorazepam 0.5 MG TAB PO PRN (10:26)
[2018-07-25] MEDS: HumuLIN 70/30 (300 UNITS/3 ML VIAL) SC SCH ×2 (10:27→16:31)
[2018-07-25] MEDS: HumaLOG 300 UNITS/3 ML VIAL SC PRN ×3 (11:41→20:48)
[2018-07-25] MEDS: hydrALAZINE 20 MG/ML VIAL SLOW IVP PRN (11:57)
[2018-07-25] MEDS: Zolpidem Tartrate 5 MG TAB PO PRN (20:46)
[2018-07-26] MEDS: hydrALAZINE 20 MG/ML VIAL SLOW IVP PRN ×2 (00:07→15:31)
[2018-07-26] MEDS: Lorazepam 0.5 MG TAB PO PRN ×3 (00:08→17:30)
[2018-07-26 05:23] LABS: #Lymphocytes 0.6 thou/uL (1.20-3.40); #Monocytes 0.5 thou/uL (0.11-0.59); #Neutrophils 4.5 thou/uL (1.40-6.50); %Basophils 0.1 % (0.0-1.0); %Eosinophils 0.3 % (0.0-10.0); %Lymphocytes 10.3 % (21.0-51.0); %Monocytes 8.2 % (0.0-10.0); %Neutrophils 81.1 % (42.0-75.0); Hemoglobin 8.9 g/dL (14.0-18.0); Mean Corpuscular HGB CONC 32.2 g/dL (32.0-36.0); Mean Corpuscular Hemoglobin 28.2 pg (27.0-31.0); Mean Corpuscular Volume 87.7 fL (78.0-98.0); Mean Platelet Volume 7.9 fL (7.4-10.4); Platelet Count 229 thou/uL (130-400); RBC Distribution Width 15.5 % (11.5-14.5); Red Blood Cell (RBC) Count 3.14 mill/uL (4.70-6.10); White Blood Cell (WBC) Count 5.6 thou/uL (4.8-10.8)
[2018-07-26 05:40] LABS: Anion Gap 12 mmol/L (10-20); BUN (Urea Nitrogen) 51 mg/dL (8.4-25.7); Calc. Creatinine Clearance 92 mL/min (70-130); Calcium 8.5 mg/dL (7.8-10.44); Carbon Dioxide 26 mmol/L (22-29); Chloride 97 mmol/L (98-107); Estimated GFR-MDRD 56; Glucose 264 mg/dL (70-105); Potassium 4.2 mmol/L (3.5-5.1); Sodium 131 mmol/L (136-145)
[2018-07-26] MEDS: HumaLOG 300 UNITS/3 ML VIAL SC PRN ×4 (05:59→20:52)
[2018-07-26] MEDS: Budesonide 0.5 MG/2 ML NEB INH SCH ×2 (07:54→20:29)
--- NOTE | 2018-07-26 08:05 | PDOC.PN ---
- Subjective Encounter Start Date: 07/26/18 Encounter Start Time: 09:50 Subjective: Patient reports improved SOB, decreased edema. Still not back to baseline. - Objective Resuscitation Status - Order Detail: 07/20/18 17:40 Resuscitation Status Routine Resuscitation Status: FULL: Full Resuscitation Discussed with: patient YURIDIA Reviewed: Yes Vital Signs & Weight: Vital Signs (12 hours) Temp Pulse Resp BP BP Pulse Ox 07/26/18 07:52 62 18 95 07/26/18 04:23 97.4 F L 58 L 16 150/77 H 98 07/26/18 00:07 60 204/79 H 07/25/18 23:48 97.7 F 60 14 95 07/25/18 20:47 191/71 H Weight Admit Weight 228 lb 9.6 oz Weight 217 lb I&O: 07/25/18 07/26/18 07/27/18 06:59 06:59 06:59 Intake Total 1400 1200 Output Total 1325 3325 Balance 75 -2125 Result Diagrams: 07/26/18 04:32 07/26/18 04:32 Additional Labs: Accuchecks 07/25/18 07/25/18 07/25/18 20:07 17:13 11:25 POC Glucose 221 H 351 H 317 H Phys Exam - Physical Examination Constitutional: NAD HEENT: moist MMs Respiratory: no wheezing, no rhonchi minimal rales Cardiovascular: RRR Gastrointestinal: soft, positive bowel sounds trace edema LLE, BKA RLE Neurological: non-focal, moves all 4 limbs Psychiatric: normal affect, A&O x 3 Dx/Plan (1) Heart failure Code(s): I50.9 - HEART FAILURE, UNSPECIFIED Status: Chronic Qualifiers: Heart failure type: systolic Heart failure chronicity: acute on chronic Qualified Code(s): I50.23 - Acute on chronic systolic (congestive) heart failure Comment: Diuresed well with increased dose of Lasix 80mg IV BID, creatinine starting to jump a bit. Will watch closely and back off on Lasix if continues ot jump up. (2) Acute bronchitis Code(s): J20.9 - ACUTE BRONCHITIS, UNSPECIFIED Status: Acute Comment: Steroids, nebs. No hx of COPD per patient. (3) Anemia Code(s): D64.9 - ANEMIA, UNSPECIFIED Status: Acute Qualifiers: Anemia type: unspecified type Qualified Code(s): D64.9 - Anemia, unspecified Comment: Stable (4) Chronic kidney disease Code(s): N18.9 - CHRONIC KIDNEY DISEASE, UNSPECIFIED Status: Chronic Qualifiers: Chronic kidney disease stage: stage 2 (mild) Qualified Code(s): N18.2 - Chronic kidney disease, stage 2 (mild) Comment: Creatinine increasing with diuresis (5) Diabetes mellitus Code(s): E11.9 - TYPE 2 DIABETES MELLITUS WITHOUT COMPLICATIONS Status: Chronic Qualifiers: Diabetes mellitus type: type 2 Diabetes mellitus fci insulin use: with meterman use (6) Hyponatremia Code(s): E87.1 - HYPO-OSMOLALITY AND HYPONATREMIA Status: Acute Comment: Due to CHF, stable (7) Neutropenia Code(s): D70.9 - NEUTROPENIA, UNSPECIFIED Status: Resolved Qualifiers: Neutropenia type: unspecified Qualified Code(s): D70.9 - Neutropenia, unspecified (8) Dyslipidemia Code(s): E78.5 - HYPERLIPIDEMIA, UNSPECIFIED Status: Chronic - Plan cont current plan of care, PT/OT, DVT proph w/lovenox * . - Discharge Day Encounter end time: 09:05
[2018-07-26] MEDS ORDERED: Metolazone 5 MG TAB PO SCH (08:30)
[2018-07-26] MEDS: Spironolactone 100 MG TAB PO SCH (09:03)
[2018-07-26] MEDS: Carvedilol 25 MG TAB PO SCH ×2 (09:03→20:44)
[2018-07-26] MEDS: Doxazosin 2 MG TAB PO SCH ×2 (09:03→20:44)
[2018-07-26] MEDS: guaiFENesin ER 600 MG TAB PO SCH ×2 (09:04→20:44)
[2018-07-26] MEDS: PARoxetine 20 MG TAB PO SCH (09:04)
[2018-07-26] MEDS: cloNIDine 0.3 MG TAB PO SCH ×2 (09:04→20:44)
[2018-07-26] MEDS: predniSONE 20 MG TAB PO SCH (09:04)
[2018-07-26] MEDS: HumuLIN 70/30 (300 UNITS/3 ML VIAL) SC SCH ×2 (09:05→17:23)
[2018-07-26] MEDS: Lisinopril 20 MG TAB PO SCH ×2 (09:05→20:44)
[2018-07-26] MEDS: Enoxaparin Sodium 40 MG/0.4 ML SYRINGE SC SCH (09:06)
[2018-07-26] MEDS: Atorvastatin Calcium 40 MG TAB PO SCH (09:49)
[2018-07-26] MEDS ORDERED: HumaLOG 300 UNITS/3 ML VIAL SC PRN (17:29)
--- NOTE | 2018-07-26 20:34 | PDOC.EVN ---
Event Note - Event Note Event Note: Patient requesting transfer to [facility] in [place]. I spoke with the doctor there and they accepted transfer, will need a telemetry bed. This is a lateral transfer so patient will have to pay for transportation himself. If he cannot afford transportation we are happy to keep treating him here.
[2018-07-26] MEDS: Zolpidem Tartrate 5 MG TAB PO PRN (20:52)
[2018-07-26 20:55] VITALS: BP 179/82
[2018-07-26 21:58] VITALS: TEMP 97.4
[2018-07-27] MEDS ORDERED: Torsemide 20 MG TAB PO SCH (09:00)
--- NOTE | 2018-07-28 06:50 | DIS ---
DATE OF ADMISSION: 07/20/2018 DATE OF DISCHARGE: 07/26/2018 PRIMARY CARE PHYSICIAN: Pedro Thurston. REASON FOR ADMISSION: CHF exacerbation. DIAGNOSES AT DISCHARGE: 1. Acute on chronic systolic congestive heart failure. 2. Acute bronchitis. 3. Anemia. 4. Chronic kidney disease, stage 2. 5. Diabetes mellitus type 2, on insulin. 6. Hyponatremia. 7. Dyslipidemia. PROCEDURES: Transthoracic echocardiogram showing ejection fraction of 35% to 40%. Cardiology, Dr. Cornell. SUMMARY OF HOSPITAL COURSE: This is a 53-year-old white male with a 2 to 3 day history of increasing shortness of breath and orthopnea along with minimally productive cough and some wheezing. He is from [place], usually gets his care for congestive heart failure at [facility]; however, he recently moved to this area along with his brother. He has been kicked out of his brother's house and is now living in the [place]. He has been continuing to take his medications there though include his long-acting insulin. The patient does have a history of right-sided driql-vut-pcaj amputation. The patient was evaluated in the emergency room and found to be in poor congestive heart failure along with some wheezing. He has no history of COPD, so this was thought to be an acute bronchitis. The patient was treated with nebulizers, with steroids, and with IV Lasix. His IV Lasix had to be increased to 80 mg twice daily, and he started at good diuresis. The patient was noncompliant with treatment during the hospitalization, constantly trying to eat things that were not on his diabetic diet. He would not stay within the fluid restriction and his diet also, and he was found smoking multiple times in his room with security had being called a couple of times. The patient asked to be transferred to [facility] in [place] due to his doctors being located there. We did inform him that this was a lateral transfer, so he would need to pay for transportation himself. We did contact [facility] and I spoke with the physician there and he accepted the patient for transfer and he was transferred on July 26 at 9 p.m. While he is in hospital, the patient did diurese significantly. His creatinine did start to rise a little bit, but he continued to tolerate the Lasix well. He did continue to have wheezing and required breathing treatments. Job ID: [id number]
== END 2018-07-26 23:04 | disposition short-term general hospital (02) | DRG 291 ==
LOC: ERS 02:21 → ERHOLD 05:36 → OBSVTOIN 05:36 → T4-A 14:29 → 2NO 20:29
PROVIDERS: ADMIT Internal Medicine; ATTEND Internal Medicine
DX: I13.0 Hypertensive heart and chronic kidney disease with heart failure and stage 1 through stage 4 chronic kidney disease, or unspecified chronic kidney disease (principal); I50.23 Acute on chronic systolic (congestive) heart failure; L97.929 Non-pressure chronic ulcer of unspecified part of left lower leg with unspecified severity; E87.2 Acidosis; E87.1 Hypo-osmolality and hyponatremia; D70.9 Neutropenia, unspecified; E11.22 Type 2 diabetes mellitus with diabetic chronic kidney disease; E11.42 Type 2 diabetes mellitus with diabetic polyneuropathy; E11.319 Type 2 diabetes mellitus with unspecified diabetic retinopathy without macular edema; E87.5 Hyperkalemia; N18.2 Chronic kidney disease, stage 2 (mild); J20.9 Acute bronchitis, unspecified; E78.5 Hyperlipidemia, unspecified; K74.60 Unspecified cirrhosis of liver; H54.8 Legal blindness, as defined in USA; D63.1 Anemia in chronic kidney disease; Z87.891 Personal history of nicotine dependence; Z79.4 Long term (current) use of insulin; Z79.899 Other long term (current) drug therapy; Z89.511 Acquired absence of right leg below knee
CPT/HCPCS: 36415; 36416; 71045; 71046; 80048; 80053; 81001; 82010; 82550; 83605; 83880; 84484; 85025; 85610; 87804; 93005; 93306; 93798; 94640; 96372; 96374; 96375; J0360; J1650; J1815; J1885; J1940; J2270; J2920; J7506; J7611; J7620; J7626